=== PATIENT | male | born 1960 | race Caucasian/White ===

== ENCOUNTER 2020-07-07 03:19 | Outpatient (CLI) | payer OTHER, SELFPAY ==
[2020-07-07 17:45] LABS: SARS-CoV-2 RNA PCR Negative
== END 2020-07-07 03:20 | disposition home or self-care (01) ==
LOC: ANHCOVIDDT 03:21
PROVIDERS: PCP Internal Medicine; Visit Provider Internal Medicine Gastroenterology
DX: Z01.812 Encounter for preprocedural laboratory examination (principal); Z20.828 Contact with and (suspected) exposure to other viral communicable diseases
CPT/HCPCS: 87635; C9803; U0003

== ENCOUNTER 2020-07-10 01:14 | Day surgery (SDC) | payer OTHER, SELFPAY ==
[2020-07-10 07:38] VITALS: BP 139/85; PULSE 64; RESP 20; TEMP 36.4; O2SAT 98; BMI 35.9
[2020-07-10] MEDS: LACTATED RINGERS 1,000 ML 150 ML IV CONT (07:50)
--- NOTE | 2020-07-10 07:59 | PM.HPGS ---
History of Present Illness History of Present Illness Consent: Risks, benefits, and alternatives have been discussed and questions answered. Patient agrees to proceed with procedure. Chief complaint: Neoplasm Screening Narrative: Hitesh Fregoso is a 60 year old W male referred for screening colonoscopy secondary history of colonic polyps. Patient has had several colonoscopies in the past and has a history of a adenomatous and hyperplastic polyps. No family history of colon polyps or colon cancer. Patient is asymptomatic. [facility] Past Medical History Medical History Depression Hyperlipidemia Hypertension JEAN (obstructive sleep apnea) Social History Social History Smoking status: Never smoker Drinks per week: 1 Substance use: never Substance use type: does not use Living arrangements: with family Spiritual care concerns: No Meds Home Medications and Allergies Home Medications Medication Instructions Recorded Confirmed Type atorvastatin 40 mg PO DAILY 07/03/20 07/03/20 History levothyroxine 100 mcg PO DAILY 07/03/20 07/03/20 History losartan 50 mg PO DAILY 07/03/20 07/03/20 History Allergies Allergy/AdvReac Type Severity Reaction Status Date / Time No Known Allergies Allergy Verified 07/10/20 07:36 Vital Signs Vital Signs - 24 hr 07/10/20 07:38 Temperature 36.4 C L Pulse Rate 64 Respiratory Rate 20 Blood Pressure 139/85 Pulse Oximetry 98 Exam Const: Orientation/consciousness: patient oriented x3 Resp: Auscultation: clear to auscultation bilaterally Cardio: Rate: regular rate Rhythm: regular rhythm Heart sounds: no murmurs GI: GI Palp: Yes Soft to palpation, No Tenderness to palpation present (GI), Yes No hepatosplenomegaly present and No Palpable mass present Auscultation: normal bowel sounds Neuro: General: patient oriented x3 and no focal motor deficits Extrem: General: no pedal edema Assessment and Plan Additional Plan screening colonoscopy secondary history of colonic polyps last colonoscopy 5 years ago
--- NOTE | 2020-07-10 08:00 | WPDANESEPPF ---
Anes - Initial Pre Proc Eval Procedure: Operation Date: 07/10/20 08:30 Proposed Procedures p Screening Colonoscopy - Cory Garrtet MD Date/Time: 07/10/20 08:00 Surgeon: Cory Garrett MD Pre Op Diagnosis: Neoplasm Screening Patient Data Age: 60 Gender: M Height: 5 ft 9 in Weight: 110.4 kg Last Vital Signs Temp 97.5 F L 07/10/20 07:38 Pulse 64 07/10/20 07:38 Resp 20 07/10/20 07:38 BP 139/85 07/10/20 07:38 Pulse Ox 98 07/10/20 07:38 Allergies Allergy/AdvReac Type Severity Reaction Status Date / Time No Known Allergies Allergy Verified 07/10/20 07:36 Home Medications Medication Instructions Recorded Confirmed Type atorvastatin 40 mg PO DAILY 07/03/20 07/03/20 History levothyroxine 100 mcg PO DAILY 07/03/20 07/03/20 History losartan 50 mg PO DAILY 07/03/20 07/03/20 History Patient hx anesthesia problems: none Family hx anesthesia problems: none [facility] Past Medical History Medical History (Updated 07/10/20 @ 08:00 by Josias Beavers MD) Depression Hyperlipidemia Hypertension JEAN (obstructive sleep apnea) Social History Social History Smoking status: Never smoker Drinks per week: 1 Substance use: never Substance use type: does not use Living arrangements: with family Spiritual care concerns: No Anes - Eval Final PreProcedure Day of Procedure 07/10/20 08:00 Patient weight: obese Heart: regular rate and rhythm Lungs: clear to auscultation Airway: Mallampati scale class II Neurological: alert and oriented Last oral intake: >/= 8 hours ASA classification: III Emergent: no Anesthetic plan: proceed Anesthesia type and monitoring: general and standard monitoring Informed Consent: The patient's anesthetic plan and its attendant risks and benefits were discussed with the patient/family/POA. Questions were solicited and answers provided to the satisfaction of the patient/family/POA.
[2020-07-10 09:22] VITALS: BP 119/74; PULSE 62; RESP 13; O2SAT 96
[2020-07-10 09:32] VITALS: BP 135/85; PULSE 57; RESP 21; O2SAT 100
[2020-07-10 09:42] VITALS: BP 137/92; PULSE 56; RESP 21; O2SAT 100
== END 2020-07-10 09:54 | disposition home or self-care (01) ==
PROVIDERS: PCP Internal Medicine; Visit Provider Internal Medicine Gastroenterology
PROC: 0DJD8ZZ Inspection of Lower Intestinal Tract, Via Natural or Artificial Opening Endoscopic (ICD-10-PCS; CPT 45378; principal; 2020-07-10 08:30)
DX: Z12.11 Encounter for screening for malignant neoplasm of colon (principal); K63.5 Polyp of colon; I10 Essential (primary) hypertension; E78.5 Hyperlipidemia, unspecified; G47.33 Obstructive sleep apnea (adult) (pediatric); K64.8 Other hemorrhoids; F32.9 Major depressive disorder, single episode, unspecified
CPT/HCPCS: 45385; 45380; 88305; J2001; J2704; J7120

== ENCOUNTER 2022-09-06 08:45 | Emergency (ER) | payer OTHER, SELFPAY ==
--- NOTE | ~2022-09-06 | XR_ITS ---
EXAMINATION: XR hip LT min 2V DATE: 09/06/2022 09:43 INDICATION: Lateral left hip pain TECHNIQUE: Anteroposterior , frog leg and cross-table lateral views of the left hip were obtained. COMPARISON: None. FINDINGS: Alignment is normal. No fracture or suspected avascular necrosis. Mild osteoarthritis at the left hip and moderate osteoarthritis at the bilateral sacroiliac joints. A few phleboliths in the pelvis. IMPRESSION: 1. Polyarticular osteoarthritis, mild at the left hip and moderate at the bilateral sacroiliac joints . Reviewed, dictated and finalized at location B. REAL SCIENTIST IMPRESSION: 1. Polyarticular osteoarthritis, mild at the left hip and moderate at the bilat eral sacroiliac joints.
[2022-09-06 08:55] VITALS: BP 154/94; PULSE 81; RESP 16; TEMP 37.2; O2SAT 99
--- NOTE | 2022-09-06 09:14 | ED.EXTPRO ---
HPI - Extremity Problem General Chief complaint: Extremity Problem,Nontraumatic Stated complaint: sharp pain in hip; Time Seen by Provider: 09/06/22 09:00 Source: patient and RN notes reviewed Mode of arrival: ambulatory Limitations: no limitations History of Present Illness HPI Narrative: 62-year-old male presents concern for left hip pain. Reports 2 day history of pain, denies injury. Reports pain is worse with weight-bearing, lying on the head. He reports the pain is isolated to a lateral slightly posterior area of the hip, does not radiate to the back or down the leg. He reports the pain is deep and sharp. He denies fever, aches, chills, sweats. Denies rash Complaint: extremity pain Related Data Home Medications Medication Instructions Recorded Confirmed atorvastatin 40 mg tablet 40 mg PO DAILY 07/03/20 09/06/22 levothyroxine 100 mcg tablet 100 mcg PO DAILY 07/03/20 09/06/22 losartan 50 mg tablet 50 mg PO DAILY 07/03/20 09/06/22 metformin 500 mg tablet 500 mg PO DIRECTED 09/06/22 09/06/22 Allergies Allergy/AdvReac Type Severity Reaction Status Date / Time No Known Allergies Allergy Verified 09/06/22 08:57 Review of Systems Review of Systems: CONSTITUTIONAL: Denies malaise, chills, sweats, or fever. CARDIOVASCULAR: Denies chest pain, palpitations, or edema. RESPIRATORY: Denies cough or dyspnea. SKIN: Denies rash or itching, bruising, redness, swelling. MUSCULOSKELETAL: Reports left hip pain NEUROLOGIC: Denies numbness, weakness All systems reviewed & are unremarkable except as noted in HPI and below PMFSH Past Medical History Medical History Depression Hyperlipidemia Hypertension JEAN (obstructive sleep apnea) Social History Social History Smoking status: Never smoker Drinks per week: 1 Substance use: never Substance use type: does not use Spiritual care concerns: No Comments At time of signature, agree with nursing past medical, surgical, social and family history. There is no relevant family history pertinent to the presenting complaint Exam Narrative: GENERAL: Well-appearing, well-nourished, and in no acute distress. HEAD: Normocephalic, atraumatic. EYES: PERRLA, ENT: Nares clear. Mucous membranes moist. NECK: Supple. CHEST: No respiratory distress. Speaks in full sentences. HEART: Regular rate and rhythm. EXTREMITIES: Left hip has grossly Normal range of motion, grossly Normal strength and sensation. No edema, ecchymosis erythema noted. No groin tenderness SKIN: Warm, dry, no visible rash. NEURO: Alert and oriented x3. PSYCH: Normal mood and affect Course Course Emergency Course: Patient is aware of diagnosis, understands and agrees to treatment plan. Anticipatory guidance given. Patient agrees to follow-up as directed and is aware of reasons to seek care at the emergency department. Portions of this record may have been created with voice recognition software Level of Care: Express Care Visit Vital Signs Vital signs: Vital Signs Temperature 99.0 F 09/06/22 08:55 Pulse Rate 81 09/06/22 08:55 Respiratory Rate 16 09/06/22 08:55 Blood Pressure 154/94 H 09/06/22 08:55 Pulse Oximetry 99 09/06/22 08:55 Oxygen Delivery Room Air 09/06/22 08:55 Temperature 99.0 F 09/06/22 08:55 Pulse Rate 81 09/06/22 08:55 Respiratory Rate 16 09/06/22 08:55 Blood Pressure 154/94 H 09/06/22 08:55 Pulse Oximetry 99 09/06/22 08:55 Oxygen Delivery Room Air 09/06/22 08:55 Reviewed. Critical Care Time Critical Care Time Critical Care Time: No Discharge Plan Discharge Clinical Impression: Hip osteoarthritis Patient Disposition: Home, Self-Care Condition: Stable Instructions: Osteoarthritis (ED) Additional Instructions: Avoid activities that cause pain until the pain subsides. Ice to the area 20-30 minutes 4-6 times a day Tylenol for lesser pain Take ketorolac
[2022-09-06] MEDS: KETOROLAC (*BKC) 60 MG/2 ML VIAL IM (09:19)
== END 2022-09-06 10:00 | disposition home or self-care (01) ==
PROVIDERS: Emergency Provider Nurse Practitioner; PCP Internal Medicine
DX: M16.12 Unilateral primary osteoarthritis, left hip (principal); E78.5 Hyperlipidemia, unspecified; I10 Essential (primary) hypertension
CPT/HCPCS: 73502; 96372; 99213; G0463; J1885

== ENCOUNTER → 2022-10-31 07:21 | Outpatient (CLI) | payer OTHER, SELFPAY ==
--- NOTE | ~2022-10-31 | MR_ITS ---
EXAMINATION: MR lumbar spine wo con DATE: 10/31/2022 07:47 INDICATION: Low back pain. Left foot drop. TECHNIQUE: Magnetic resonance imaging (MRI) of the lumbar spine was performed without intravenous con trast. Sequences included sagittal T2-weighted FSE, sagittal T2-weighted FS FSE, sagittal T1-weighted FSE, and axial T2-weighted FSE. COMPARISON: None FINDINGS: There is 9 degrees dextrocurvature of the lumbar spine. There are chronic bilateral L5 pars defects. There is 3 mm retrolisthesis of T12 on L1, L1 on L2, L2 on L3, and L3 on L4. There is 3 mm anterolisthesis of L5 on S1. There are Schmorl's nodes at multiple levels. There is mild chronic ante rior wedging of T11 and L1 vertebral bodies. There is a hemangioma in L2 vertebral body. There is mil dly decreased disc height at L1-L2, moderately decreased disc height at L2-L3 and L3-L4, and mildly d ecreased disc height at L4-L5 and L5-S1. The distal spinal cord signal intensity is normal. The conus medullaris is at T12. The following disc levels are specifically discussed: L1-L2: The disc is bulging and has an annular fissure. There is moderate bilateral facet joint osteoa rthritis. There is mild bilateral neural foraminal stenosis. There is mild central canal stenosis. L2-L3: The disc is bulging and has an annular fissure. There is severe bilateral facet joint osteoart hritis. There is moderate right and mild left neural foraminal stenosis. There is mild central canal stenosis. L3-L4: The disc is bulging and has an annular fissure. There is moderate bilateral facet joint osteoa rthritis. There is moderate right and mild left neural foraminal stenosis. There is mild central bonnie l stenosis. L4-L5: The disc is bulging and has an annular fissure. There is severe right and mild left facet join t osteoarthritis. There is moderate bilateral neural foraminal stenosis. There is mild central canal stenosis. L5-S1: The disc is bulging. There is moderate bilateral facet joint osteoarthritis. There is mild yvonne ateral neural foraminal stenosis. There is no central canal stenosis. IMPRESSION: 1. Moderate lumbar spondylosis. Reviewed, dictated and finalized at location A. L TECHNICIAN
== END ==
PROVIDERS: PCP Internal Medicine; Visit Provider Orthopaedic Surgery
DX: M54.50 Low back pain, unspecified (principal); M21.372 Foot drop, left foot; M43.06 Spondylolysis, lumbar region
CPT/HCPCS: 72148